=== PATIENT | male | born 1990 | race Two or more races ===

== ENCOUNTER 2024-06-07 08:10 | Emergency (ER) | payer BC, SELFPAY ==
[2024-06-07 08:11] VITALS: BMI 34.7
[2024-06-07 08:38] VITALS: BP 119/73; PULSE 73; RESP 17; TEMP 36.9; O2SAT 97
--- NOTE | 2024-06-07 08:53 | XR_ITS ---
Examination: Lumbar spine 3 views Technique one AP lateral coned lateral lower lumbar spine 3 views Exam date and time: June 07, 2024 0912 hours INDICATIONS: Lower back pain beginning 2 years ago. FINDINGS: Satisfactory alignment lumbar vertebral bodies Transitional L5 vertebral body No lumbar fracture Minimal lumbar spondylosis Early degenerative disc disease L4-L5 IMPRESSION: Early degenerative disc disease L4-L5
--- NOTE | 2024-06-07 08:56 | EDNOTE_ITS ---
<Statement entered by Agueda Martinez MD - 06/08/24 07:40> As co-signing physician, I was present and available for consult prn. I concur with the plan and care as documented by the midlevel provider. ED Back Injury Pain RME/HPI General Chief Complaint: Back Pain/Injury Stated Complaint: LOWER BACK PAIN Time Seen by Provider: 06/07/24 08:29 Source: patient Arrival date/time: 06/07/24 08:10 34-year-old male presents to the emergency department with complaints of lumbar lower back pain. Patient reports that today this morning he was having severe pain when getting up from bed. He states he has been having intermittent lower back pain for approximately 2 years has not followed up with his PCP. No recent injury. Denies bowel or bladder dysfunction no urinary symptoms. Mode of arrival: ambulatory Limitations: no limitations Related Data Previous Rx's ?Medication ?Instructions ?Recorded hydrocortisone 2.5 % topical cream 1 applic NH QDAY NH N hemorrhoids 01/26/23 with perineal applicator #30 grams (Anusol-HC) lidocaine 5 % topical cream 1 applic topical BID PRN p ain #15 01/26/23 (AneCream5) grams cyclobenzaprine 5 mg tablet 5 mg PO TID PRN muscle spa sm #14 06/07/24 tabs gabapentin 100 mg capsule 100 mg PO TID PRN back pain #20 06/07/24 caps ibuprofen 800 mg tablet (IBU) 800 mg PO Q8H #20 tabs 0 06/07/24 Allergies Allergy/AdvReac Type Severity Reaction Status Date / Time No Known Allergies Allergy Verified 06/07/24 08:11 Review of Systems Review of Systems Systems Reviewed: All systems reviewed, normal except as documented Narrative Review of Systems: Gen: No fever, no chills, no weight loss EYES: No discharge, no visual changes, no pain HEENT: No ear pain, no congestion, no sore throat PULM: No shortness of breath, no cough, no congestion CV: No chest pain, no dyspnea on exertion, no palpitations GI: No nausea, no vomiting, no diarrhea, no pain, no constipation : No frequency, no urgency,? no dysuria Musc/skel: No joint pain, +back pain Skin: No rash? ED Exam General Limitations: Present no limitations General appearance: Present alert and in no apparent distress Head Head exam: Present atraumatic Eye Eye exam: Present normal appearance, PERRL and EOMI ENT ENT exam: Present normal exam, normal oropharynx and mucous membranes moist Neck Neck exam: Present normal inspection, full ROM and trachea midline Chest Chest inspection: Present normal inspection and symmetric chest wall rise Respiratory Respiratory exam: Present normal lung sounds bilaterally Cardiovascular Cardiovascular exam: Present regular rate, normal rhythm and normal heart sounds Abdominal Exam Abdominal exam: Present soft and normal bowel sounds Extremities Exam Extremities exam: Present normal inspection and full ROM Back Exam Back exam: Present full ROM, muscle spasm, paraspinal tenderness and sciatic notch tenderness (R); Absent CVA tenderness (R) or CVA tenderness (L) Neurological Exam Neurological exam: Present alert, oriented X3 and CN II-XII intact Psychiatric Psychiatric exam: Present normal affect and normal mood Skin Skin exam: Present warm, dry, intact and normal color Course Quality Measures none Orders Category Date Time Status XR lumbar spine 2-3V Stat Exams 06/07/24 08:53 Completed CYCLObenzaPRINE [Flexeril] Med 06/07/24 08:53 Discontinued 5 mg PO X1 ONE MethylPREDNISolone.* [SoluMEDROL Inj] Med 06/07/24 08:53 Discontinued 125 mg IM X1 ONE Vital Signs Vital signs: Vital Signs Temperature 98.4 F 06/07/24 08:38 Pulse Rate 73 06/07/24 08:38 Respiratory Rate 17 06/07/24 08:38 Blood Pressure 119/73 06/07/24 08:38 Pulse Oximetry (%) 97 06/07/24 08:38 Oxygen Delivery Method Room Air 06/07/24 08:38 Back Pain / Injury MDM Narrative MDM Narrative:: No fever, weakness, abdominal pain, saddle anesthesia, bowel/bladder incontinence noted. No hx of IVDA. Gait and sensation intact. No signs of emergent pathology at this time. Low suspicion for emergent etiology such as epidural abscess or spinal cord compression/cauda equina. Exam is consistent with musculoskeletal back pain. X-ray demonstrates mild degenerative disc disease. based on history, it's chronic pain. Gave meds while in ED. Pain went from 10 to 5 after meds. Vitals improved as well. Strictly advised to follow-up with PCP for further evaluation physical therapy MRI outpatient. Strict ER precautions given Patient data External records reviewed:: [facility] previous records Clinical information provided by:: patient Social determinants that could affect healthcare access:: none Patient has the following chronic illnesses:: no How is presenting disease/condition affected by chronic disease/condition?: no chronic disease Evaluation data The following diagnostics were reviewed and interpreted by me:: radiology exam(s) Lab and/or radiology exams considered but not ordered:: no Interpretation Summary: Exam date and time: June 07, 2024 0912 hours INDICATIONS: Lower back pain beginning 2 years ago. FINDINGS: Satisfactory alignment lumbar vertebral bodies Transitional L5 vertebral body No lumbar fracture Minimal lumbar spondylosis Early degenerative disc disease L4-L5 IMPRESSION: Early degenerative disc disease L4-L5 Medications / Prescriptions Medications or Prescriptions considered but not ordered:: no Medication administrations:: Medication Administration History Discontinued Medications Cyclobenzaprine HCl (Cyclobenzaprine 5 Mg Tablet) 5 mg PO X1 ONE Stop: 06/07/24 08:54 Last Admin: 06/07/24 09:01 Dose: 5 mg Documented By: DB Methylprednisolone Sodium Succinate (Methylprednisolone Sod Succ 62.5 Mg/Ml 2ml Vial) 125 mg IM X1 ONE Stop: 06/07/24 08:54 Last Admin: 06/07/24 09:00 Dose: 125 mg Documented By: DB All medications administered and effective Consultations Consultation(s) initiated? (list below): No Diagnosis Differential diagnosis back pain/injury: lumbar radiculopathy, strain of lumbar region and thoracic back pain Most likely diagnosis given after review of the tests above:: Degenerative disc disease, lumbar acute pain Admission Indicated Admission indicated?: not indicated Admission Request Was there a request for admission?: No Disposition Plan Disposition Plan: Discharge Discharge Attestation Discharge Attestation: The patient and all family members were given an opportunity to ask questions and understood the discharge instructions. Discharge instructions specifically effects, indications for sooner follow up or return to the emergency department, and the expected course of current diagnosis. Patient condition: Stable Discharge Plan Plan Patient Disposition: HOME (Self Care) Prescriptions/Referrals Prescriptions/Med Rec: New gabapentin 100 mg capsule 100 mg PO TID PRN (Reason: back pain) Qty: 20 0RF ibuprofen [IBU] 800 mg tablet 800 mg PO Q8H Qty: 20 0RF cyclobenzaprine 5 mg tablet 5 mg PO TID PRN (Reason: muscle spasm) Qty: 14 0RF No Action lidocaine [AneCream5] 5 % cream 1 applic topical BID PRN (Reason: pain) Qty: 15 0RF hydrocortisone [Anusol-HC] 2.5 % cream with perineal applicator 1 applic NH QDAY PRN (Reason: hemorrhoids) Qty: 30 0RF Referrals: No Primary/Family,Physician [Primary Care Provider] - In 1 week Problem List Clinical Impression: Strain of lumbar region, Degenerative disk disease Patient/Caregiver Discharge Instructions Discharge Activity: activity as tolerated Education Materials: ED Back Sprain/Strain Additional Instructions: Your x-ray demonstrates mild degenerative disc disease lumbar spine. Can use nonpharmacologic treatment with superficial heat, massage, acupuncture, or spinal manipulation If pharmacologic treatment is desired, good choice is nonsteroidal anti- inflammatory drugs (NSAIDs) or skeletal muscle relaxants. Please follow-up with your primary doctor you might need a MRI or physical therapy is often incorporated as a component of conservative therapy Advised to start medications of: Gabapentin Muscle relaxer Ibuprofen Return to the emergency department this any worsening symptoms any condition. Print Language: Palestinian Stand Alone Forms: [place] Award Info., Work/School Release, Patient Portal Info Letter PA/LARON Supervising Physician PA/LABEL TACKER Supervising Physician: Dr. Doan
[2024-06-07] MEDS: MethylPREDNISolone SOD SUCC 62.5 MG/ML 2ML VIAL 125 MG IM (09:00)
[2024-06-07] MEDS: CYCLObenzaPRINE 5 MG TABLET PO (09:01)
== END 2024-06-07 11:33 | disposition home or self-care (01) ==
PROVIDERS: Emergency Provider Emergency Medicine
DX: S39.012A Strain of muscle, fascia and tendon of lower back, initial encounter (principal); M51.360 Other intervertebral disc degeneration, lumbar region with discogenic back pain only; G89.29 Other chronic pain; X58.XXXA Exposure to other specified factors, initial encounter
CPT/HCPCS: 72100; 96372; 99283; J2919; A9270